=== PATIENT | male | born 1965 | race Caucasian/White ===

== ENCOUNTER 2017-11-01 15:38 | Inpatient (IN) | payer MEDICAID ==
[~2017-11-01] VITALS: Ht 193 cm; Wt 84.8 kg
[2017-11-01 17:19] LABS: BASOPHILS % (AUTO) 1 % (0-1); EOSINOPHILS # (AUTO) 0.61 x10^3/uL (0-0.4); EOSINOPHILS % (AUTO) 4 % (1-7); LYMPHOCYTES # (AUTO) 3.02 x10^3/uL (1-3.4); LYMPHOCYTES % (AUTO) 20 % (22-44); MD NO; MEAN CORPUSCULAR HEMOGLOBIN 34.9 pg (27.5-34.5); MEAN CORPUSCULAR HGB CONC 33.6 g/dL (33.2-36.2); MEAN CORPUSCULAR VOLUME 104.1 fL (81-97); MEAN PLATELET VOLUME 8.4 fL (7.4-10.4); MONOCYTES # (AUTO) 0.95 x10^3/uL (0.2-0.8); MONOCYTES % (AUTO) 6 % (2-9); NEUTROPHILS # (AUTO) 10.59 x10^3/uL (1.8-6.8); NEUTROPHILS % (AUTO) 69 % (42-75); PLATELET COUNT 364 x10^3/uL (130-400); RED BLOOD COUNT 4.47 x10^6/uL (4.38-5.82); RED CELL DISTRIBUTION WIDTH 13.3 % (9.4-14.8)
[2017-11-01 17:30] LABS: ALANINE AMINOTRANSFERASE 24 U/L (12-78); ALBUMIN 3.6 g/dL (3.4-5.0); ANION GAP 8 mmol/L (5-15); CALCIUM 9.1 mg/dL (8.5-10.1); CHLORIDE 112 mmol/L (98-107); CREATININE 0.75 mg/dL (0.7-1.3)
[2017-11-01 17:34] LABS: ALKALINE PHOSPHATASE 76 U/L (45-117); BILIRUBIN,TOTAL 0.2 mg/dL (0.2-1.0)
[2017-11-01] MEDS ORDERED: ZIPRASIDONE 20 MG INJ IM ONE ×3 (18:00→18:06)
[2017-11-01] MEDS ORDERED: LORazepam 2 MG/ML, 1ML IM ONE (18:00)
[2017-11-01] MEDS ORDERED: LORazepam 2 MG/ML, 1ML ONE (18:07)
[2017-11-01] MEDS ORDERED: D5%-0.9% NACL 1,000 ML IV ONE ×2 (19:30)
[2017-11-01] MEDS ORDERED: POTASSIUM CHLORIDE 20 MEQ, MAGNESIUM SULFATE 1 GM, FOLIC ACID 1 MG, THIAMINE 100 MG, MV... IV SCH (21:00)
[2017-11-01] MEDS ORDERED: D5%-0.9% NACL 1,000 ML IV SCH (21:30)
[2017-11-02 06:17] LABS: MICROSCOPIC NOT IND
[2017-11-02 06:20] LABS: CULTURE INDICATED? NO
[2017-11-02 06:31] LABS: AMPHETAMINE SCREEN, URINE Positive (Negative); BARBITURATE SCREEN, URINE Negative (Negative); BENZODIAZEPINE SCREEN, URINE Positive (Negative); CANNABINOID SCREEN, URINE Negative (Negative); COCAINE SCREEN, URINE Negative (Negative); METHADONE SCREEN, URINE Negative (Negative); OPIATE SCREEN, URINE Negative (Negative)
[2017-11-02] MEDS ORDERED: LORazepam 2 MG/ML, 1ML ONE (09:52)
[2017-11-02] MEDS ORDERED: ZIPRASIDONE 20 MG INJ IM PRN (10:00)
[2017-11-02] MEDS ORDERED: HALOPERIDOL 5 MG/ML IM PRN (10:00)
[2017-11-02] MEDS ORDERED: LORazepam 2 MG/ML, 1ML IM PRN (10:00)
[2017-11-02] MEDS ORDERED: ACETAMINOPHEN 325 MG TABLET PO PRN (10:00)
[2017-11-02] MEDS ORDERED: LORazepam 1MG TABLET ONE (12:36)
[2017-11-02 16:00] VITALS: BP 144/87
[2017-11-02] MEDS ORDERED: NICOTINE 21 MG/24 HR PATCH.TD24 TD ONE (17:00)
[2017-11-02] MEDS: ENOXAPARIN 40 MG/0.4 ML SQ SCH (18:11)
[2017-11-02 19:59] VITALS: BP 130/85
[2017-11-03 00:04] VITALS: BP 150/87
[2017-11-03 05:08] VITALS: BP 135/84
[2017-11-03 07:55] VITALS: BP 137/85
[2017-11-03] MEDS ORDERED: POTASSIUM CHLORIDE 20 MEQ, MAGNESIUM SULFATE 1 GM, FOLIC ACID 1 MG, THIAMINE 100 MG, MV... IV SCH (18:30)
[2017-11-03] MEDS: ENOXAPARIN 40 MG/0.4 ML SQ SCH (19:38)
[2017-11-03 19:45] VITALS: BP 124/78
[2017-11-03] MEDS ORDERED: KETOROLAC 30 MG/1 ML IM ONE (21:30)
[2017-11-03] MEDS: BEER 12 OZ CAN PO SCH (22:07)
[2017-11-03 22:45] VITALS: BP 133/86
[2017-11-03] MEDS: LORazepam 1MG TABLET PO PRN (23:41)
[2017-11-04 02:03] VITALS: BP 118/82
[2017-11-04] MEDS: LORazepam 1MG TABLET PO PRN ×2 (05:29→12:32)
[2017-11-04 06:35] LABS: ALANINE AMINOTRANSFERASE 18 U/L (12-78); ALBUMIN 2.9 g/dL (3.4-5.0); ANION GAP 6 mmol/L (5-15); CALCIUM 8.8 mg/dL (8.5-10.1); CHLORIDE 106 mmol/L (98-107); CREATININE 0.66 mg/dL (0.7-1.3)
[2017-11-04 06:50] LABS: ALKALINE PHOSPHATASE 75 U/L (45-117); BILIRUBIN,TOTAL 0.3 mg/dL (0.2-1.0); TOTAL PROTEIN 6.6 g/dL (6.4-8.2)
[2017-11-04 07:17] VITALS: BP 128/81
[2017-11-04] MEDS: BEER 12 OZ CAN PO SCH (09:12)
[2017-11-04] MEDS: KETOROLAC 30 MG/1 ML IVPush SCH ×2 (09:15→13:22)
[2017-11-04 12:49] VITALS: BP 123/76
[2017-11-04] MEDS ORDERED: BEER 12 OZ CAN PO SCH ×2 (13:30)
== END 2017-11-04 14:05 | disposition left against medical advice (07) | DRG 342 ==
LOC: ED 23:59 → OBSVTOIN 11-02 09:43 → SUATTDRO 11-02 09:43 → EDIP 11-02 09:43 → 2N 11-02 15:00 → 4NOR 11-03 22:42
PROVIDERS: ADMIT Hospitalist; ATTEND Hospitalist
DX: S92.312A Displaced fracture of first metatarsal bone, left foot, initial encounter for closed fracture (principal); E87.0 Hyperosmolality and hypernatremia; R45.851 Suicidal ideations; I95.9 Hypotension, unspecified; E86.0 Dehydration; F10.229 Alcohol dependence with intoxication, unspecified; W18.39XA Other fall on same level, initial encounter; E16.2 Hypoglycemia, unspecified; M79.89 Other specified soft tissue disorders; F32.9 Major depressive disorder, single episode, unspecified; F60.2 Antisocial personality disorder; Z59.0 Homelessness; Y93.89 Activity, other specified; Y92.89 Other specified places as the place of occurrence of the external cause; Y99.8 Other external cause status
CPT/HCPCS: 36415; 80053; 80307; 81003; 83735; 83880; 84100; 85025; 93005; 93970; J1650; J1885; J3411; J3475; J3480; J3486; J7042; J7070; G0378; J2060; Q0177